=== PATIENT | female | born 1930 | race Caucasian/White ===

== ENCOUNTER 2019-12-13 06:15 | Emergency (ER) | payer OTHER, MEDICARE ==
[2019-12-13 06:56] LABS: Absolute Lymphocytes (CBC) 0.7 K/uL (0.7-4.9); Basophils % 0.8 % (0-1.3); Hematocrit 37.6 % (36.0-45.0); Lymphocytes % 12.9 % (15.3-44.8); MPV 7.4 fL (7.6-11.3); RBC Red Blood Cell Count 4.11 M/uL (3.86-4.86)
[2019-12-13 06:57] LABS: Protime INR 1.13
[2019-12-13] MEDS ORDERED: ONDANSETRON 4 MG/2 ML VIAL ONE (06:59)
[2019-12-13 07:06] LABS: ALT/SGPT 12 U/L (12-78); AST/SGOT 15 U/L (15-37); Albumin 3.4 g/dL (3.4-5.0); Alkaline Phosphatase 57 U/L (45-117); BUN Blood Urea Nitrogen 11 mg/dL (7-18); Bicarbonate 29 mmol/L (21-32); Bilirubin Direct 0.2 mg/dL (0-0.2); Bilirubin Total 0.7 mg/dL (0.2-1.0); Glucose Level 116 mg/dL (74-106); Magnesium 2.2 mg/dL (1.8-2.4); NT PRO-BNP 707 pg/mL (<450); Potassium 3.6 mmol/L (3.5-5.1); Sodium Level 141 mmol/L (136-145); Troponin (Emerg Dept Use Only) < 0.02 ng/mL (0.0-0.045)
[2019-12-13] MEDS ORDERED: PROMETHAZINE INJ 25 MG/ML AMP ONE (07:39)
--- NOTE | 2019-12-13 07:44 | RAD REPORT ---
EXAM DESCRIPTION: RAD - Chest Single View - 12/13/2019 7:03 am CLINICAL HISTORY: nausea, shortness of breath, abdominal pain, hypertension COMPARISON: August 2016 TECHNIQUE: AP portable chest image was obtained 12/13/2019 7:03 am . FINDINGS: Interstitial fibrotic changes are present with no focal mass or consolidation identifiable . Heart and vasculature are normal. No measurable pleural effusion and no pneumothorax. No acute bony abnormality seen. No acute aortic findings suspected. IMPRESSION: Fibrotic lung change with no acute cardiopulmonary finding. No significant interval change.
--- NOTE | 2019-12-13 08:19 | RAD REPORT ---
EXAM DESCRIPTION: CT - Abdomen Pelvis W Contrast - 12/13/2019 7:50 am CLINICAL HISTORY: diverticulitis, nausea COMPARISON: Abdomen Pelvis W Contrast dated 03/27/2016 TECHNIQUE: Biphasic, helical CT imaging of the abdomen and pelvis was performed following 100 ml non -ionic IV contrast. No oral contrast administered. All CT scans are performed using dose optimization technique as appropriate and may include automated exposure control or mA/KV adjustment according to patient size. FINDINGS: No suspicious findings in the lung bases. No solid mass identified in the liver. Patient has liver cyst but are homogeneous fluid attenuation w ithin nielson. The midline left lobe cyst is 4.9 cm on the current study measuring approximately 4.6 cm in 2017. The central right lobe lesion is 2.9 cm compared to 2.2 cm in 2017. Spleen and pancreas josafat w no suspicious findings. Gallbladder and biliary tree are also without suspicious finding. Gallstone s can be occult on CT imaging. Symmetric renal function is seen with no hydronephrosis or suspicious renal mass. No pyelonephritis o r acute parenchymal process. No bladder abnormalities. No adrenal abnormalities. No uterine abnormali ty. Ovaries contain remnant ovarian or paraovarian cysts measuring 16 mm on the right and 19 mm on th e left. These are unchanged from 2017. No gastric wall thickening or mass. No small bowel abnormality identified. Contrast material is seen in the left-side of the colon from prior diagnostic study. This also could be medication. Patient has a very extensive diverticulosis pattern in a very redundant sigmoid colon. No acute diverticulitis c hanges are identifiable. Moderately large stool volume distends but does not dilate the right-side co stoney and transverse colon. No free air, free fluid or inflammatory stranding. No hernia, mass or bulky lymphadenopathy. No suspicious bony findings. IMPRESSION: Patient has very extensive diverticulosis within the tortuous sigmoid colon. No divertic ulitis is identifiable. Mild mucosal level diverticulitis is still possible. No acute or emergent CT abdomen or pelvis finding. Nonacute findings detailed in the body of the repo rt.
--- NOTE | 2019-12-13 09:12 | ER ---
Nurse's Notes [facility] Name: Vy Hess Age: 89 yrs Sex: Female : 1930 Arrival Date: 12/13/2019 Time: 06:16 Bed 18 Private MD: Diagnosis: Dehydration;Nausea Presentation: 12/12 06:18 Chief complaint: EMS states: Pt was diagnosed with diverticulitis 6 years ago. Was jb4 recently put on Ciprofloxacin and Flagyl for diverticulitis. Now is reporting Nausea, Vomiting, and weakness. Coronavirus screen: At this time, the client does not indicate any symptoms associated with coronavirus-19. Ebola Screen: No symptoms or risks identified at this time. Initial Sepsis Screen: Does the patient meet any 2 criteria? No. Patient's initial sepsis screen is negative. Does the patient have a suspected source of infection? No. Patient's initial sepsis screen is negative. Risk Assessment: Do you want to hurt yourself or someone else? Patient reports no desire to harm self or others. Onset of symptoms was December 13, 2019. 06:18 Method Of Arrival: EMS: [facility] jb4 06:18 Acuity: LONNY 2 jb4 06:18 Care prior to arrival: Medication(s) given: Phenergan, 6mg zofran 4 mg, IV initiated. jb4 20 GA, in the right antecubital area. Historical: - Allergies: 06:26 Codeine; jb4 06:26 Sulfa (Sulfonamide Antibiotics); jb4 - Home Meds: 06:26 ciprofloxacin oral oral [Active]; Flagyl Oral [Active]; jb4 - PMHx: 06:26 cyclical vomiting; Diverticulitis; Hypertension; jb4 - PSHx: 06:26 R leg surgery; jb4 - Immunization history:: Adult Immunizations up to date. - Social history:: Smoking status: Patient denies any tobacco usage or history of. Patient/guardian denies using alcohol, street drugs. - Family history:: not pertinent. - Hospitalizations: : No recent hospitalization is reported. Screenin:31 Abuse screen: Denies threats or abuse. Nutritional screening: No deficits noted. jb4 Tuberculosis screening: No symptoms or risk factors identified. Fall Risk None identified. Assessment: 06:29 General: Appears in no apparent distress. comfortable, Behavior is calm, cooperative, jb4 appropriate for age, Provider notified of blood pressure, instructed to recheck.. Pain: Denies pain. Neuro: Level of Consciousness is awake, alert, obeys commands, Oriented to person, place, time, situation. Cardiovascular: Patient's skin is warm and dry. Respiratory: Airway is patent Respiratory effort is even, unlabored, Respiratory pattern is regular, symmetrical. GI: Abdomen is flat, non-distended, Reports nausea. : No signs and/or symptoms were reported regarding the genitourinary system. EENT: No signs and/or symptoms were reported regarding the EENT system. Derm: Skin is intact, Skin is pink, warm \T\ dry. Musculoskeletal: Circulation, motion, and sensation intact. Range of motion: intact in all extremities. 07:00 Reassessment: RECD REPORT FROM KEENA HOLDER. 89YO WF P/W N/V AND WEAKNESS, RECENT DX OF jb4 DIVERTICULITIS WITH ABX RX. ALL CURRENT ORDERS COMPLETED. 07:29 Reassessment: PT TO CT. bp 07:57 Reassessment: PT RETURNED FROM CT, NO ADVERSE RXN TO CONTRAST. bp 09:06 Reassessment: RE-EVAL BY . ALL CURRENT ORDERS COMPLETED, DISPO PENDING. bp 09:30 Reassessment: D/C ON HOLD FOR IVF INFUSION. bp 10:51 Reassessment: MD NOTIFIED, PT REQUESTING DIFFERENT ABX TO TAKE AT HOME. IVF COMPLETED. bp 11:00 Reassessment: MD SPOKE WITH PT AGAIN. PT NOW REFUSING D/C UNTIL CALLED BY DR LUNA. bp 11:26 Reassessment: PT SPOKE WITH DR SLAUGHTER. PT NOW AGREEING TO D/C. TRANSPORT PENDING. bp 11:47 Reassessment: PT D/C ON HOLD FOR PIV AND IVF BY PROVIDER. bp 13:21 Reassessment: IVF COMPLETED. PT D/C VIA W/C WITH FAMILY. bp Vital Signs: 06:18 BP 221 / 87; Pulse 78; Resp 16; Temp 97.7(O); Pulse Ox 99% on R/A; Weight 65.77 kg (R); jb4 Height 5 ft. 6 in. (167.64 cm) (R); Pain 0/10; 06:26 BP 192 / 76; Pulse 73; Resp 16; Pulse Ox 98% on R/A; jb4 06:31 BP 147 / 56; Pulse 72; Resp 16; Pulse Ox 98% on R/A; jb4 07:00 BP 163 / 82; Pulse 77; Resp 16; Pulse Ox 99% ; jb4 08:00 BP 146 / 87; Pulse 86; Resp 16; Pulse Ox 100% ; bp 09:00 BP 150 / 70; Pulse 76; Resp 16; Pulse Ox 98% ; bp 10:51 BP 145 / 61; Pulse 68; Resp 17; Temp 98; Pulse Ox 96% ; bp 06:18 Body Mass Index 23.40 (65.77 kg, 167.64 cm) jb4 ED Course: 06:16 Patient arrived in ED. cl3 06:18 Deion Mcmahon, RN is Primary Nurse. jb4 06:23 Triage completed. jb4 06:26 Arm band placed on right wrist. jb4 06:31 Patient has correct armband on for positive identification. Bed in low position. Call jb4 light in reach. Side rails up X 1. Pulse ox on. NIBP on. 06:48 EKG done, by ED staff, reviewed by Juan Ramon Nuñez MD. ds4 07:00 José Galaviz MD is Attending Physician. rn 07:00 Maintain EMS IV. Dressing intact. Good blood return noted. Site clean \T\ dry. Gauge \T\ bp site: 20 G R AC. 07:03 XRAY Chest (1 view) In Process Unspecified. EDMS 07:50 CT Abd/Pelvis - IV Contrast Only In Process Unspecified. EDMS 08:26 Primary Nurse role handed off by Deion Mcmahon, RN bp 08:26 Zackery Rubalcava, GLORY is Primary Nurse. bp 09:54 Troponin (emerg Dept Use Only) Sent. bp 09:54 NT PRO-BNP Sent. bp 09:54 Magnesium Sent. bp 09:54 LFT's Sent. bp 09:54 CBC with Diff Sent. bp 09:54 Basic Metabolic Panel Sent. bp 13:21 No provider procedures requiring assistance completed. IV discontinued, intact, bp bleeding controlled, No redness/swelling at site. Pressure dressing applied. Administered Medications: 06:43 Not Given (Hemodynamic Parameters): hydrALAZINE 10 mg IV at bolus once jb4 06:51 Drug: Zofran (Ondansetron) 4 mg Route: IVP; Site: right antecubital; jb4 07:29 Follow up: Response: Nausea unchanged bp 07:29 Drug: Phenergan 12.5 mg Route: IVP; Site: right antecubital; bp 09:54 Follow up: Response: Nausea is decreased bp 09:15 Drug: NS 0.9% 500 ml Route: IV; Rate: bolus; Site: right antecubital; bp 11:07 Follow up: IV Status: Completed infusion; IV Intake: 500ml bp Intake: 11:07 IV: 500ml; Total: 500ml. bp Outcome: 09:12 Discharge ordered by MD. rn 13:21 Discharged to home via wheelchair, with family. bp 13:21 Condition: stable 13:21 Discharge instructions given to patient, Instructed on discharge instructions, follow up and referral plans. medication usage, Demonstrated understanding of instructions, follow-up care, medications, Prescriptions given X 1. 13:22 Patient left the ED. bp Signatures: Dispatcher [employer] EDMS José Galaviz MD MD rn Swanson, Donovan ds4 Deion Mcmahon RN RN jbZackery Luque RN RN Jelly Osorio cl3 Corrections: (The following items were deleted from the chart) 06:40 06:29 BP 192 / 76; Pulse 73bpm; Resp 16bpm; Pulse Ox 98% RA; jb4 jb4 08:03 07:57 BP 164 / 106; Pulse 86bpm; Resp 16bpm; Pulse Ox 100%; bp bp
--- NOTE | 2019-12-13 09:12 | EDPHYS ---
Physician Documentation [facility] Name: Vy Hess Age: 89 yrs Sex: Female : 1930 Arrival Date: 12/13/2019 Time: 06:16 Bed 18 Private MD: ED Physician José Galaviz HPI: 12/12 07:21 This 89 yrs old Female presents to ER via EMS with complaints of Nausea, rn Weakness. 07:21 The patient presents to the emergency department with nausea. Onset: The rn symptoms/episode began/occurred 1 month(s) ago. 09:07 Possible causes: unknown. The symptoms are aggravated by nothing. The symptoms are rn alleviated by nothing. Severity of symptoms: At their worst the symptoms were mild in the emergency department the symptoms are unchanged. The patient has experienced similar episodes in the past. Reports recently seen by Dr. keyes, had a scope, told had diverticulitis, started abx this week, also has cyclical nausea, reports no abd pain, but nausea is what brought her in, usually comes in gets shot and improves. . Historical: - Allergies: 06:26 Codeine; jb4 06:26 Sulfa (Sulfonamide Antibiotics); jb4 - Home Meds: 06:26 ciprofloxacin oral oral [Active]; Flagyl Oral [Active]; jb4 - PMHx: 06:26 cyclical vomiting; Diverticulitis; Hypertension; jb4 - PSHx: 06:26 R leg surgery; jb4 - Immunization history:: Adult Immunizations up to date. - Social history:: Smoking status: Patient denies any tobacco usage or history of. Patient/guardian denies using alcohol, street drugs. - Family history:: not pertinent. - Hospitalizations: : No recent hospitalization is reported. ROS: 09:07 Constitutional: Negative for fever, chills, and weight loss, Eyes: Negative for injury, rn pain, redness, and discharge, Neck: Negative for injury, pain, and swelling, Cardiovascular: Negative for chest pain, palpitations, and edema, Respiratory: Negative for shortness of breath, cough, wheezing, and pleuritic chest pain, Abdomen/GI: Negative for abdominal pain, nausea, diarrhea, and constipation, MS/Extremity: Negative for injury and deformity, Skin: Negative for injury, rash, and discoloration, Neuro: Negative for headache, numbness, tingling, and seizure. Exam: 09:07 Constitutional: This is a well developed, well nourished patient who is awake, alert, rn and in no acute distress. Head/Face: Normocephalic, atraumatic. ENT: dry MM Cardiovascular: Regular rate and rhythm. No pulse deficits. Respiratory: No increased work of breathing, no retractions or nasal flaring. Abdomen/GI: soft, non-tender, non-distended Skin: Warm, dry MS/ Extremity: Pulses equal, no cyanosis. Neurovascular intact. Full, normal range of motion. Equal circumference. Neuro: Awake and alert, GCS 15, oriented to person, place, time, and situation. Cranial nerves II-XII grossly intact. Motor strength 5/5 in all extremities. Sensory grossly intact. Cerebellar exam normal. 09:12 ECG was reviewed by the Attending Physician. rn Vital Signs: 06:18 BP 221 / 87; Pulse 78; Resp 16; Temp 97.7(O); Pulse Ox 99% on R/A; Weight 65.77 kg (R); jb4 Height 5 ft. 6 in. (167.64 cm) (R); Pain 0/10; 06:26 BP 192 / 76; Pulse 73; Resp 16; Pulse Ox 98% on R/A; jb4 06:31 BP 147 / 56; Pulse 72; Resp 16; Pulse Ox 98% on R/A; jb4 07:00 BP 163 / 82; Pulse 77; Resp 16; Pulse Ox 99% ; jb4 08:00 BP 146 / 87; Pulse 86; Resp 16; Pulse Ox 100% ; bp 09:00 BP 150 / 70; Pulse 76; Resp 16; Pulse Ox 98% ; bp 10:51 BP 145 / 61; Pulse 68; Resp 17; Temp 98; Pulse Ox 96% ; bp 06:18 Body Mass Index 23.40 (65.77 kg, 167.64 cm) jb4 Procedures: 11:50 Peripheral line: by aseptic technique a peripheral line was placed in the left snw antecubital vein. MDM: 07:00 Patient medically screened. rn 09:07 Differential diagnosis: Nonspecific abd pain, diverticulitis, viral gastroenteritis, rn gastroenteritis, dehydration. Data reviewed: vital signs, nurses notes, lab test result(s), radiologic studies, CT scan, and as a result, I will discharge patient. Counseling: I had a detailed discussion with the patient and/or guardian regarding: the historical points, exam findings, and any diagnostic results supporting the discharge/admit diagnosis, lab results, radiology results, the need for outpatient follow up, to return to the emergency department if symptoms worsen or persist or if there are any questions or concerns that arise at home. Response to treatment: the patient's symptoms have markedly improved after treatment, and as a result, I will discharge patient. Special discussion: I discussed with the patient/guardian in detail that at this point there is no indication for admission to the hospital. It is understood, however, that if the symptoms persist or worsen the patient needs to return immediately for re-evaluation. ED course: CT no acute findings, bloodwork unremarkable, nausea now resolved, already on abx, will change zofran to phenergan and dc home with pcp f/u. . 12/12 06:28 Order name: Basic Metabolic Panel tw4 12/12 06:28 Order name: CBC with Diff tw4 12/12 06:28 Order name: LFT's tw4 12/12 06:28 Order name: Magnesium tw4 12/12 06:28 Order name: NT PRO-BNP tw4 12/12 06:28 Order name: PT-INR; Complete Time: 07:07 tw4 12/12 06:28 Order name: Troponin (emerg Dept Use Only) tw4 12/12 06:28 Order name: XRAY Chest (1 view); Complete Time: 08:32 tw4 12/12 06:29 Order name: Basic Metabolic Panel; Complete Time: 07:07 EDMS 12/12 06:29 Order name: CBC with Automated Diff; Complete Time: 07:07 EDMS 12/12 06:29 Order name: Liver (Hepatic) Function; Complete Time: 07:07 EDMS 12/12 06:29 Order name: Magnesium; Complete Time: 07:07 EDMS 12/12 06:29 Order name: NT PRO-BNP; Complete Time: 07:07 EDMS 12/12 06:29 Order name: Troponin (Emerg Dept Use Only); Complete Time: 07:07 EDMS 12/12 06:28 Order name: EKG; Complete Time: 06:29 tw4 12/12 06:28 Order name: Cardiac monitoring; Complete Time: 06:31 tw4 12/12 06:28 Order name: EKG - Nurse/Tech; Complete Time: 06:43 tw4 12/12 06:28 Order name: IV Saline Lock; Complete Time: 06:31 tw4 12/12 06:28 Order name: Labs collected and sent; Complete Time: 06:39 tw4 12/12 06:28 Order name: O2 Per Protocol; Complete Time: 06:31 tw4 12/12 06:28 Order name: O2 Sat Monitoring; Complete Time: 06:31 tw4 12/12 07:07 Order name: CT Abd/Pelvis - IV Contrast Only; Complete Time: 08:32 rn EC:12 Rate is 70 beats/min. Rhythm is regular. QRS [place] is Normal. [place] interval is prolonged. rn QRS interval is normal. QT interval is normal. No Q waves. T waves are Normal. No ST changes noted. Clinical impression: 1st degree heart block. Interpreted by me. Reviewed by me. Administered Medications: 06:43 Not Given (Hemodynamic Parameters): hydrALAZINE 10 mg IV at bolus once jb4 06:51 Drug: Zofran (Ondansetron) 4 mg Route: IVP; Site: right antecubital; jb4 07:29 Follow up: Response: Nausea unchanged bp 07:29 Drug: Phenergan 12.5 mg Route: IVP; Site: right antecubital; bp 09:54 Follow up: Response: Nausea is decreased bp 09:15 Drug: NS 0.9% 500 ml Route: IV; Rate: bolus; Site: right antecubital; bp 11:07 Follow up: IV Status: Completed infusion; IV Intake: 500ml bp Disposition: 14:53 Co-signature as Attending Physician, José Galaviz MD. rn Disposition: 12/13/19 09:12 Discharged to Home. Impression: Dehydration, Nausea. - Condition is Stable. - Discharge Instructions: Dehydration, Elderly, Nausea, Adult. - Prescriptions for promethazine 25 mg Oral Tablet - take 1 tablet by ORAL route every 6-8 hours As needed; 20 tablet. - Medication Reconciliation Form, Thank You Letter, Antibiotic Education, Prescription Opioid Use form. - Follow up: Private Physician; When: As needed; Reason: Recheck today's complaints, Re-evaluation by your physician. - Problem is new. - Symptoms have improved. Signatures: Dispatcher [employer] EDClara Batistay, INFORMATICS PHARMACIST-C INFORMATICS PHARMACIST-Csnw José Galaviz MD MD rn Bryson, James, GLORY RN jb4 Zackery Rubalcava RN RN bp Juan Ramon Nuñez MD MD tw4 Corrections: (The following items were deleted from the chart) 07:21 The patient presents to the emergency department with nausea, vomiting, diarrhea, rn rn 07: 07:21 This 89 yrs old Female presents to ER via EMS with complaints of rn Nausea, Weakness. rn 13: 09:12 12/13/2019 09:12 Discharged to Home. Impression: Dehydration; Nausea. Condition bp is Stable. Forms are Medication Reconciliation Form, Thank You Letter, Antibiotic Education, Prescription Opioid Use. Follow up: Private Physician; When: As needed; Reason: Recheck today's complaints, Re-evaluation by your physician. Problem is new. Symptoms have improved. rn
[2019-12-13] MEDS ORDERED: NA CHLORIDE 0.9% 500 ML ONE (09:49)
--- NOTE | 2019-12-13 11:38 | EKG ---
Test Date: 2019-12-13 Test Time: 06:44:14 Probation Manager: MARGARITO MEASUREMENT RESULTS: Intervals: Rate: 70 CT: 224 QRSD: 86 QT: 398 QTc: 429 [place]: P: 82 CT: 224 QRS: 13 T: 59 INTERPRETIVE STATEMENTS: Sinus rhythm with 1st degree AV block Otherwise normal ECG Compared to ECG 09/08/2016 02:54:01 First degree AV block now present Electronically Signed On 12-13-19 11:37:09 CDT by Elvis Tesfaye
[2019-12-13] MEDS ORDERED: NA CHLORIDE 0.9% 1,000 ML ONE (11:57)
[2019-12-13 14:09] VITALS: BP 123/72; TEMP 97.6; O2SAT 99
== END 2019-12-13 13:22 | disposition home or self-care (01) ==
LOC: ER 06:15
PROC: 05HC33Z Insertion of Infusion Device into Left Basilic Vein, Percutaneous Approach (ICD-10-PCS; principal; 2019-12-13)
DX: E86.0 Dehydration (principal)
CPT/HCPCS: 96361; 93005; 85025; 80048; 36415; 83735; 85610; 80076; 84484; 83880; 74177; 71045; 96375; 96374; 99284; 36569; Q9967; J2550; J7040; J7030; J2405